=== PATIENT | female | born 1950 | race Caucasian/White ===

== ENCOUNTER 2018-01-23 10:42 | Inpatient (IN) | payer MEDICARE ==
--- NOTE | 2018-01-23 11:01 | ED Physician Chart ---
ED Chief Complaint/HPI - Patient Information Date Seen:: 01/23/18 Time Seen:: 10:40 Chief Complaint:: Agitation History of Present Illness:: onset x 2 days of agitation and aggressive behavior; no report of SIs, trauma, H /As, neck pain, C/P, SOB, Abd. Pain, A/N/V/D/C, fever, chills, or urinary s/s Allergies:: Allergies Allergy/AdvReac Type Severity Reaction Status Date / Time No Known Allergies Allergy Verified 01/23/18 10:56 Historian:: Patient, EMS Review:: Nurse's Note Reviewed, Old Chart Reviewed, EMS run form Reviewed ED Review of Systems - Review of Systems General/Constitutional: No fever, No chills, No weight loss, No weakness, No diaphoresis, No edema, No loss of appetite Skin: No skin lesions, No rash, No bruising Head: No headache, No light-headedness Eyes: No loss of vision, No pain, No diplopia ENT: No earache, No nasal drainage, No sore throat, No tinnitus Neck: No neck pain, No swelling, No thyromegaly, No stiffness, No mass noted Cardio Vascular: No chest pain, No palpitations, No PND, No orthopnea, No edema Pulmonary: No SOB, No cough, No sputum, No wheezing GI: No nausea, No vomiting, No diarrhea, No pain, No melena, No hematochezia, No constipation, No hematemesis G/U: No dysuria, No frequency, No hematuria, No nacturia Sales Service Coordinator: No vaginal discharge, No abnormal vaginal bleed, No contraction Musculoskeletal: No bone or joint pain, No back pain, No muscle pain Endocrine: No polyuria, No polydipsia Psychiatric: Prior psych history, Depression, Anxiety, No suicidal ideation, No homicidal ideation, No auditory hallucination, No visual hallucination Hematopoietic: No bruising, No lymphadenopathy Allergic/Immuno: No urticaria, No angioedema Neurological: No syncope, No focal symptoms, No weakness, No paresthesia, No headache, No seizure, No dizziness, No confusion, No vertigo ED Past Medical History - Past Medical History Obtainable: Yes Past Medical History: HTN Family History: HTN Social History: Non Smoker, No Alcohol, No Drug Use, Single, Care Facility Surgical History: None Psychiatricy History: Depression, Bipolar Medication: Reviewed Family Medical History - Family Member Mother History Unknown: Yes ED Physical Exam - Physical Examination General/Constitutional: Awake, Well-developed, well-nourished, Alert, No distress, GCS 15, Non-toxic appearing, Ambulatory Head: Atraumatic Eyes: Lids, conjuctiva normal, PERRL, EOMI Skin: Nl inspection, No rash, No skin lesions, No ecchymosis, Well hydrated, No lymphadenopathy ENMT: External ears, nose nl, TM canals nl, Nasal exam nl, Lips, teeth, gums nl , Oropharynx nl, Tonsils nl Neck: Nontender, Full ROM w/o pain, No JVD, No nuchal rigidity, No bruit, No mass, No stridor Respiratory: Nl effort/Exclusion, Clear to Auscultation, No Wheeze/Rhonchi/Rales Cardio Vascular: RRR, No murmur, gallop, rubs, NL S1 S2, Carotid/Femoral/Distal pulses equal bilaterally GI: No tenderness/rebounding/guarding, No organomegaly, No hernia, Normal BS's, Nondistended, No mass/bruits, No McBurney tenderness : No CVA tenderness Extremities: No tenderness or effusion, Full ROM, normal strength in all extremities, No edema, Normal digits & nails Neuro/Psych: Alert/oriented, DTR's symmetric, Normal sensory exam, Normal motor strength, Judgement/insight normal, Mood normal, Normal gait, No focal deficits Other Neuro/Psych comments:: + Psychomotor Agitation; no SIs; Mood/Affect: Labile Misc: Normal back, No paraspinal tenderness ED Labs/Radiology/EKG Results - Lab Results Comments:: unremarkable - EKG Interpretations EKG Time:: 11:15 Rate & Rhythm: 57; SB Comments:: non-specific st-t changes ED Septic Shock - . Is Septic Shock (SBP<90, OR Lactate>4 mmol\L) present?: No ED Reassessment (Disposition) - Reassessment Reassessment Condition:: Improved - Diagnosis Diagnosis:: Agitation; Bipolar Disorder; Psychosis; Medical Clearance - Aftercare/Follow up Instructions Aftercare/Follow-Up Instructions:: Counseled pt regarding lab results/diagnosis & need follow up, Refer to Discharge Instructions, Counseled pt & family regarding lab results/diagnosis & need follow up - Patient Disposition Discharge/Transfer:: Acute Care w/in this hosp Admitted to:: [facility] Condition at Disposition:: Stable, Improved
[2018-01-23 11:26] LABS: % BASOPHILS 0.2 % (0.0-2.0); % EOSINOPHILS 1.5 % (0.0-5.0); % LYMPHOCYTES 30.7 % (20.0-50.0); % MONOCYTES 5.3 % (2.0-10.0); % NEUTROPHILS 62.3 % (40.0-80.0); EOSINOPHILE ABSOLUTE 0.1 Th/cmm (0.1-0.4); HEMATOCRIT 45.6 % (41.0-60); HEMOGLOBIN 15.3 gm/dL (12-16); LYMPHOCYTE ABSOLUTE 3.1 Th/cmm (1.5-3.0); MEAN CELL VOLUME 90.7 fl (81-100); MEAN CORPUSCULAR HEMOGLOBIN 30.3 pg (27.0-31.0); MEAN CORPUSCULAR HGB CONC 33.5 pg (28.0-36.0); MEAN PLATELET VOLUME 7.4 fl; MONOCYTE ABSOLUTE 0.5 Th/cmm (0.3-1.0); NEUTROPHILE ABSOLUTE 6.3 Th/cmm (1.8-8.0); PLATELET COUNT 357 Th/cmm (150-400); RED BLOOD COUNT 5.03 Mil/cmm (3.80-5.20); RED CELL DISTRIBUTION WIDTH 13.3 % (11.5-20.0)
[2018-01-23 11:42] LABS: ACETAMINOPHEN < 10.0 ug/mL (10.0-30.0); ALB/GLOB RATIO 1.7 (1.0-1.8); ALBUMIN 4.2 gm/dL (3.7-5.3); ALKALINE PHOSPHATASE 108 U/L (34-104); ANION GAP 11.1 (7.0-16.0); BILIRUBIN,TOTAL 0.5 mg/dL (0.3-1.0); BUN - UREA NITROGEN 12 mg/dL (7-25); CALCIUM SERUM 9.2 mg/dL (8.6-10.3); CHLORIDE 107 mEq/L (98-107); CHOLESTEROL 142 mg/dL (<200); CREATININE - SERUM 0.7 mg/dL (0.6-1.2); GFR AFRICAN-AMERICAN > 60.0 ml/min (>90); GFR NON AFRICAN-AMERICAN > 60.0 ml/min; GLUCOSE 91 mg/dL (70-105); HDL -HIGH DENSITY LIPOPROTEIN 49 mg/dL (23-92); POTASSIUM SERUM 4.1 mEq/L (3.5-5.1); SGOT 14 U/L (13-39); SGPT/ALT 12 U/L (7-52); SODIUM SERUM 138 mEq/L (136-145); TOTAL PROTEIN,SERUM 6.7 gm/dL (6.0-8.3); TRIGLYCERIDES 136 mg/dL (<150)
[2018-01-23 12:04] LABS: SALICYLATES (ASPIRIN) < 25.0 mg/L (30.0-100.0)
[2018-01-23 12:05] LABS: URINE MICROSCOPIC INDICATED? YES; URINE SOURCE CLEAN C
[2018-01-23 12:07] LABS: URINE BILIRUBIN NEGATIVE (NEGATIVE); URINE BLOOD SMALL (NEGATIVE); URINE GLUCOSE (UA) NEGATIVE (NEGATIVE); URINE KETONE NEGATIVE (NEGATIVE); URINE LEUKOCYTE ESTERASE NEGATIVE (NEGATIVE); URINE NITRATE NEGATIVE (NEGATIVE); URINE PH 6.5 (4.6 - 8.0); URINE PROTEIN NEGATIVE (NEGATIVE); URINE UROBILINOGEN 0.2 E.U./dL (0.2 - 1.0)
[2018-01-23 12:43] LABS: URINE CLARITY CLEAR (CLEAR); URINE COLOR YELLOW
[2018-01-23 12:49] LABS: URINE BACTERIA NONE SEEN /hpf (NONE SEEN); URINE EPITHELIAL CELLS OCCASIONAL /lpf (FEW); URINE RBC 0-2 /hpf (0-5); URINE WBC 0-2 /hpf (0-5)
[2018-01-23 13:04] LABS: AMPHETAMINE URINE NEGATIVE (NEGATIVE); BARBITURATES URINE NEGATIVE (NEGATIVE); BENZODIAZEPINES QUAL URINE NEGATIVE (NEGATIVE); CANNABINOID THC NEGATIVE (NEGATIVE); COCAINE METABOLITE QUAL URINE NEGATIVE (NEGATIVE); METHADONE URINE NEGATIVE (NEGATIVE); METHAMPHETAMINES QUAL URINE NEGATIVE (NEGATIVE); OPIATES (MORPHINE) QUAL. URINE POSITIVE (NEGATIVE); PHENCYCLIDINE (PCP) URINE NEGATIVE (NEGATIVE); TRICYCLICS (TCA) QUAL. URINE NEGATIVE (NEGATIVE)
[2018-01-23 14:22] VITALS: BP 166/78
[2018-01-23] MEDS: Hydrocodone/APAP 10 mg/325 mg Tab PO PRN (16:31)
[2018-01-23 19:37] LABS: A1C % 5.8 % (4.0-6.0)
--- NOTE | 2018-01-23 19:50 | Psychosocial Evaluation ---
DATE OF SERVICE: 01/23/2018 IDENTIFYING DATA: The patient is a 67-year-old woman, resident of the [facility]. Information obtained by directly interviewing the patient as well as reviewing the admission papers and they are reliable. JUSTIFICATION FOR HOSPITALIZATION: The patient is admitted here on a voluntary basis in view of her acute agitation and aggressive behavior. CHIEF COMPLAINT: "I should not be in here and I do not need to talk to anyone get me out of here." HISTORY OF PRESENT ILLNESS: This is the first psychiatric hospitalization to this patient who has been very aggressive over the past few days and has been having difficult time to calm down. The patient could not be contained at a lower level of care and the patient has to be transferred over here for further stabilization. Chart is reviewed. Staff was spoken to. The patient at this time is very adamant and is not providing much information stating that she should be discharged. The patient is alert and oriented at this time. MENTAL STATUS EXAMINATION: Insight and judgment are very much impaired. Impulse control seems to be poor. Coping skills are also noted to be very poor. The patient is not providing much of information. The patient's short term memory is noted to be poor. Long-term memory seems to be fair at this time. The patient has been having acute mood swings. The patient is alert and aware that she is in the hospital. Attention span and concentration are noted to be poor. DIAGNOSTIC IMPRESSION: AXIS I: 1. Rule out bipolar disorder. 2. Psychotic disorder, not otherwise specified. AXIS II: None. AXIS III: As per Dr. Ventura. IMMEDIATE TREATMENT PLAN: The patient is going to be observed on inpatient unit, provided with supportive psychotherapy. The patient is going to be started on a very low dose of the Seroquel tonight and patient is going to be monitored. Once stabilized, the patient is going to be discharged. ESTIMATED LENGTH OF STAY: Three to five days. DISCHARGE CRITERIA: When she no longer a threat to self or others and be able to cope up with the stress. JOB# [id number]
[2018-01-24] MEDS: Magnesium Hydroxide (MOM) 30 mL UDC PO SCH (09:03)
[2018-01-24] MEDS: Multivitamin w/ Minerals Tab PO SCH (09:04)
[2018-01-24] MEDS: Hydrocodone/APAP 10 mg/325 mg Tab PO PRN ×2 (09:22→18:43)
--- NOTE | 2018-01-24 14:48 | Internal Medicine Prog Note ---
Internal Medicine Subjective - Subjective Service Date: 01/24/18 ([facility] [id number]) Internal Medicine Objective - Results Result Diagrams: 01/23/18 11:15 01/23/18 11:15 Recent Labs: Laboratory Last Values WBC 10.0 Th/cmm (4.8-10.8) 01/23/18 11:15 RBC 5.03 Mil/cmm (3.80-5.20) 01/23/18 11:15 Hgb 15.3 gm/dL (12-16) 01/23/18 11:15 Hct 45.6 % (41.0-60) 01/23/18 11:15 MCV 90.7 fl (81-100) 01/23/18 11:15 MCH 30.3 pg (27.0-31.0) 01/23/18 11:15 MCHC Differential 33.5 pg (28.0-36.0) 01/23/18 11:15 RDW 13.3 % (11.5-20.0) 01/23/18 11:15 Plt Count 357 Th/cmm (150-400) 01/23/18 11:15 MPV 7.4 fl 01/23/18 11:15 Neutrophils % 62.3 % (40.0-80.0) 01/23/18 11:15 Lymphocytes % 30.7 % (20.0-50.0) 01/23/18 11:15 Monocytes % 5.3 % (2.0-10.0) 01/23/18 11:15 Eosinophils % 1.5 % (0.0-5.0) 01/23/18 11:15 Basophils % 0.2 % (0.0-2.0) 01/23/18 11:15 Sodium 138 mEq/L (136-145) 01/23/18 11:15 Potassium 4.1 mEq/L (3.5-5.1) 01/23/18 11:15 Chloride 107 mEq/L (98-107) 01/23/18 11:15 Carbon Dioxide 24.0 mEq/L (21.0-31.0) 01/23/18 11:15 Anion Gap 11.1 (7.0-16.0) 01/23/18 11:15 BUN 12 mg/dL (7-25) 01/23/18 11:15 Creatinine 0.7 mg/dL (0.6-1.2) 01/23/18 11:15 Est GFR ( Amer) > 60.0 ml/min (>90) 01/23/18 11:15 Est GFR (Non-Af Amer) > 60.0 ml/min 01/23/18 11:15 BUN/Creatinine Ratio 17.1 01/23/18 11:15 Glucose 91 mg/dL (70-105) 01/23/18 11:15 Hemoglobin A1c % 5.8 % (4.0-6.0) 01/23/18 11:15 Calcium 9.2 mg/dL (8.6-10.3) 01/23/18 11:15 Total Bilirubin 0.5 mg/dL (0.3-1.0) 01/23/18 11:15 AST 14 U/L (13-39) 01/23/18 11:15 ALT 12 U/L (7-52) 01/23/18 11:15 Alkaline Phosphatase 108 U/L (34-104) H 01/23/18 11:15 Total Protein 6.7 gm/dL (6.0-8.3) 01/23/18 11:15 Albumin 4.2 gm/dL (3.7-5.3) 01/23/18 11:15 Globulin 2.5 gm/dL 01/23/18 11:15 Albumin/Globulin Ratio 1.7 (1.0-1.8) 01/23/18 11:15 Triglycerides 136 mg/dL (<150) 01/23/18 11:15 Cholesterol 142 mg/dL (<200) 01/23/18 11:15 LDL Cholesterol Direct 82 mg/dL (75-193) 01/23/18 11:15 HDL Cholesterol 49 mg/dL (23-92) 01/23/18 11:15 TSH 1.10 uIU/ml (0.34-5.60) 01/23/18 11:15 Urine Source CLEAN C 01/23/18 11:40 Urine Color YELLOW 01/23/18 11:40 Urine Clarity CLEAR (CLEAR) 01/23/18 11:40 Urine pH 6.5 (4.6 - 8.0) 01/23/18 11:40 Ur Specific [place] <= 1.005 (1.005-1.030) 01/23/18 11:40 Urine Protein NEGATIVE mg/dL (NEGATIVE) 01/23/18 11:40 Urine Glucose (UA) NEGATIVE mg/dL (NEGATIVE) 01/23/18 11:40 Urine Ketones NEGATIVE mg/dL (NEGATIVE) 01/23/18 11:40 Urine Blood SMALL (NEGATIVE) H 01/23/18 11:40 Urine Nitrate NEGATIVE (NEGATIVE) 01/23/18 11:40 Urine Bilirubin NEGATIVE (NEGATIVE) 01/23/18 11:40 Urine Urobilinogen 0.2 E.U./dL (0.2 - 1.0) 01/23/18 11:40 Ur Leukocyte Esterase NEGATIVE (NEGATIVE) 01/23/18 11:40 Urine RBC 0-2 /hpf (0-5) 01/23/18 11:40 Urine WBC 0-2 /hpf (0-5) 01/23/18 11:40 Ur Epithelial Cells OCCASIONAL /lpf (FEW) 01/23/18 11:40 Urine Bacteria NONE SEEN /hpf (NONE SEEN) 01/23/18 11:40 Salicylates < 25.0 mg/L (30.0-100.0) L 01/23/18 11:15 Urine Opiates Screen POSITIVE (NEGATIVE) H 01/23/18 11:40 Urine Methadone Screen NEGATIVE (NEGATIVE) 01/23/18 11:40 Acetaminophen < 10.0 ug/mL (10.0-30.0) L 01/23/18 11:15 Ur Barbiturates Screen NEGATIVE (NEGATIVE) 01/23/18 11:40 Ur Tricyclics Screen NEGATIVE (NEGATIVE) 01/23/18 11:40 Ur Phencyclidine Scrn NEGATIVE (NEGATIVE) 01/23/18 11:40 Amphetamines Screen NEGATIVE (NEGATIVE) 01/23/18 11:40 U Methamphetamines Scrn NEGATIVE (NEGATIVE) 01/23/18 11:40 U Benzodiazepines Scrn NEGATIVE (NEGATIVE) 01/23/18 11:40 U Cocaine Metab Screen NEGATIVE (NEGATIVE) 01/23/18 11:40 U Cannabinoids Screen NEGATIVE (NEGATIVE) 01/23/18 11:40 Ethyl Alcohol < 10 mg/dL (0-10) 01/23/18 11:15 - Physical Exam Vitals and I&O: Vital Signs Temp 97.9 F 01/23/18 14:20 Pulse 69 01/24/18 09:04 Resp 18 01/23/18 14:20 BP 167/74 01/24/18 09:04 Pulse Ox 94 01/23/18 14:20 Active Medications: Current Medications Acetaminophen (Tylenol) 650 mg PO Q6H PRN PRN Reason: Pain (Mild) Stop: 03/24/18 14:34 Acetaminophen/Hydrocodone Bitart ([place] 10 Mg/325 Mg) 1 tab PO Q6H PRN PRN Reason: Pain (Severe) Stop: 03/24/18 14:34 Last Admin: 01/24/18 09:22 Dose: 1 tab Aspirin (Ecotrin) 81 mg PO DAILY [facility] Stop: 03/25/18 08:59 Last Admin: 01/24/18 09:04 Dose: 81 mg Baclofen (Lioresal) 10 mg PO TID [facility] Stop: 03/24/18 20:59 Last Admin: 01/24/18 09:03 Dose: 10 mg Cholecalciferol (Vitamin D3) 1,000 iu PO DAILY [facility] Stop: 03/25/18 08:59 Last Admin: 01/24/18 09:04 Dose: 1,000 iu Docusate Sodium (Colace) 200 mg PO BID [facility] Stop: 03/24/18 16:59 Last Admin: 01/24/18 09:04 Dose: Not Given Famotidine (Pepcid) 20 mg PO DAILY [facility] Stop: 03/25/18 08:59 Last Admin: 01/24/18 09:05 Dose: 20 mg Haloperidol (Haldol) 1 mg PO BID PRN; Protocol PRN Reason: Agitation Stop: 03/25/18 08:59 Magnesium Hydroxide (Milk Of Magnesia) 30 ml PO DAILY [facility] Stop: 03/25/18 08:59 Last Admin: 01/24/18 09:03 Dose: 30 ml Metoprolol Tartrate (Lopressor) 50 mg PO BID [facility] Stop: 03/24/18 15:59 Last Admin: 01/24/18 09:04 Dose: 50 mg Oxybutynin Chloride (Ditropan) 5 mg PO BID [facility] Stop: 03/24/18 16:59 Last Admin: 01/24/18 09:04 Dose: 5 mg Simvastatin (Zocor) 40 mg PO HS [facility] PRN Reason: Protocol Stop: 03/24/18 20:59 Last Admin: 01/23/18 21:06 Dose: 40 mg Trazodone HCl (Desyrel) 50 mg PO HS [facility] PRN Reason: Protocol Stop: 03/24/18 20:59 Last Admin: 01/23/18 21:07 Dose: 50 mg
--- NOTE | 2018-01-24 16:26 | History & Physical ---
ADMIT DATE: 01/24/2018 CHIEF COMPLAINT: Agitation. HISTORY OF PRESENT ILLNESS: This is a 67-year-old female who is a residential resident, who was admitted to the Geropsych Unit due to a 2-day history of agitation and aggressive behavior. PAST MEDICAL HISTORY: Hypertension, muscle spasms, constipation, GERD, hypertension, hypercholesterolemia. PLAN: The patient to be admitted. We will monitor the patient's blood pressure closely. We will adjust patient's blood pressure medications accordingly. We will continue to follow this patient. JOB# [id number]
--- NOTE | 2018-01-25 03:17 | Progress Notes ---
DATE: 01/24/2018 SUBJECTIVE: Staff was spoken to. The patient is interviewed. Mood is noted to be irritable. Affect is constricted. Insight and judgment at this time are noted to be still impaired. Impulse control is limited. The patient is insisting that she has been too much of pain and needs a hydrocodone tablet. The patient has been given a [place] earlier, the patient is still focused on the pain medication and she is also stating that there is no reason for her to be in here and continues to be discharged. The patient's coping skills are noted to be very poor. The patient's sleep is also noted to be very poor. ASSESSMENT: The patient is still impulsive. PLAN: To continue the patient with the supportive therapy, encouraged the patient to verbalize the concerns in view of her depression and insistence on the pain medications. Depression is suspected and the patient is going to be started with the low dose of the Lexapro in the morning and the patient is going to be followed up with the supportive therapy. JOB# [id number]
[2018-01-25] MEDS: Escitalopram Oxalate 5 mg Tab PO SCH (09:13)
[2018-01-25] MEDS: Multivitamin w/ Minerals Tab PO SCH (09:34)
[2018-01-25] MEDS: Magnesium Hydroxide (MOM) 30 mL UDC PO SCH (09:35)
--- NOTE | 2018-01-25 12:47 | History and Physical ---
History of Present Illness - HPI Chief Complaint: agitation HPI: This is a 67 year old female who is a [facility] resident admitted to geropsych unit due to a 2 day history of agitation and aggressive behavior. Vital Signs: Last Vital Signs Temp 97.8 F 01/24/18 16:25 Pulse 81 01/25/18 09:34 Resp 18 01/24/18 16:25 BP 145/82 01/25/18 09:34 Pulse Ox 96 01/24/18 16:25 Past Medical History Other History: htn muscle spasms constipation gerd htn hypercholesteremia Family Medical History - Family Member Mother History Unknown: Yes Social History Smoke: No Alcohol: None Drugs: None Lives: Skilled Nursing - Medications Home Medications: Home Medication Medication Instructions Recorded Type Acetaminophen 650 mg PO Q6H PRN 01/23/18 History Aspirin [Adult Low Dose Aspirin EC] 81 mg PO DAILY 01/23/18 History Baclofen [Lioresal*] 10 mg PO TID 01/23/18 History Cholecalciferol (Vit D3) [Vitamin 1 tab PO DAILY 01/23/18 History D3] Diphenhydramine HCl [Benadryl] 25 mg PO Q6H PRN 01/23/18 History Docusate Sodium 200 mg PO BID 01/23/18 History Famotidine [Pepcid] 1 tab PO DAILY 01/23/18 History Hydrocodone/APAP 10 mg/325 mg 1 tab PO Q6H PRN 01/23/18 History [[place] 10 mg/325 mg] Magnesium Hydroxide [Milk of 30 ml PO DAILY 01/23/18 History Magnesia] Metoprolol Tartrate [Lopressor] 1 tab PO BID 01/23/18 History Multivitamin w/ Minerals 1 tab PO DAILY 01/23/18 History [Theragran M] Oxybutynin Chloride [Ditropan*] 5 mg PO BID 01/23/18 History Simvastatin [Zocor] 40 mg PO HS 01/23/18 History Trazodone HCl 1 tab PO HS 01/23/18 History - Allergies Allergies/Adverse Reactions: Allergies Allergy/AdvReac Type Severity Reaction Status Date / Time No Known Allergies Allergy Verified 01/23/18 10:56 Review of Systems - Review of Systems Constitutional: Report: No Significant Eyes: Report: No Significant ENT: Report: No Significant Respiratory: Report: No Significant Cardiovascular: Report: No Significant Gastrointestinal: Report: No Significant Neurological: Report: No Significant Physical Exam - Physical Exam HEENT: Report: Ears Nose Throat within normal limits Neck: Report: Within normal limits Cardiovascular Systems: Report: +s1/s2 noted, Regular, Rate and Rhythm Respiratory: Report: Breath Sounds are within normal limits Abdomen: Report: Non-tender to palpation Back: Report: Inspection of back is within normal limits. Extremities: Report: Non-tender to palpation. Skin: Report: Color of skin is within normal limits Neuro/Psych: Report: Mood affect is within normal limits - Assessment Assessment: agitation psychosis htn muscle spasms constipation gerd htn hypercholesteremia - Plan Plan: prn laxatives fall precautions continue current orders
[2018-01-25] MEDS: Hydrocodone/APAP 10 mg/325 mg Tab PO PRN (17:26)
--- NOTE | 2018-01-26 03:44 | Progress Notes ---
DATE: 01/25/2018 PSYCHIATRIC PROGRESS NOTE SUBJECTIVE: Staff was spoken to. The patient is interviewed. Mood is noted to be irritable. Affect is constricted. Coping skills are noted to be very poor. The patient is getting easily frustrated. The patient is stating that she is frustrated and depressed after being in here and she wants to be back at the facility. No side effects to the medications are noted at this time. The patient is still focused on her pain medication. ASSESSMENT: The patient is still impulsive and still depressed. PLAN: To continue the patient with the supportive therapy and follow. JOB# [id number]
[2018-01-26] MEDS: Magnesium Hydroxide (MOM) 30 mL UDC PO SCH (08:57)
[2018-01-26] MEDS: Escitalopram Oxalate 5 mg Tab PO SCH (08:57)
[2018-01-26] MEDS: Multivitamin w/ Minerals Tab PO SCH (08:58)
[2018-01-26] MEDS: Hydrocodone/APAP 10 mg/325 mg Tab PO PRN ×2 (11:34→21:13)
--- NOTE | 2018-01-26 13:43 | Internal Medicine Prog Note ---
Internal Medicine Subjective - Subjective Service Date: 01/26/18 Patient seen and examined:: with staff Patient is:: awake, verbal Per staff patient has:: tolerating meds Internal Medicine Objective - Results Result Diagrams: 01/23/18 11:15 01/23/18 11:15 Recent Labs: Laboratory Last Values WBC 10.0 Th/cmm (4.8-10.8) 01/23/18 11:15 RBC 5.03 Mil/cmm (3.80-5.20) 01/23/18 11:15 Hgb 15.3 gm/dL (12-16) 01/23/18 11:15 Hct 45.6 % (41.0-60) 01/23/18 11:15 MCV 90.7 fl (81-100) 01/23/18 11:15 MCH 30.3 pg (27.0-31.0) 01/23/18 11:15 MCHC Differential 33.5 pg (28.0-36.0) 01/23/18 11:15 RDW 13.3 % (11.5-20.0) 01/23/18 11:15 Plt Count 357 Th/cmm (150-400) 01/23/18 11:15 MPV 7.4 fl 01/23/18 11:15 Neutrophils % 62.3 % (40.0-80.0) 01/23/18 11:15 Lymphocytes % 30.7 % (20.0-50.0) 01/23/18 11:15 Monocytes % 5.3 % (2.0-10.0) 01/23/18 11:15 Eosinophils % 1.5 % (0.0-5.0) 01/23/18 11:15 Basophils % 0.2 % (0.0-2.0) 01/23/18 11:15 Sodium 138 mEq/L (136-145) 01/23/18 11:15 Potassium 4.1 mEq/L (3.5-5.1) 01/23/18 11:15 Chloride 107 mEq/L (98-107) 01/23/18 11:15 Carbon Dioxide 24.0 mEq/L (21.0-31.0) 01/23/18 11:15 Anion Gap 11.1 (7.0-16.0) 01/23/18 11:15 BUN 12 mg/dL (7-25) 01/23/18 11:15 Creatinine 0.7 mg/dL (0.6-1.2) 01/23/18 11:15 Est GFR ( Amer) > 60.0 ml/min (>90) 01/23/18 11:15 Est GFR (Non-Af Amer) > 60.0 ml/min 01/23/18 11:15 BUN/Creatinine Ratio 17.1 01/23/18 11:15 Glucose 91 mg/dL (70-105) 01/23/18 11:15 Hemoglobin A1c % 5.8 % (4.0-6.0) 01/23/18 11:15 Calcium 9.2 mg/dL (8.6-10.3) 01/23/18 11:15 Total Bilirubin 0.5 mg/dL (0.3-1.0) 01/23/18 11:15 AST 14 U/L (13-39) 01/23/18 11:15 ALT 12 U/L (7-52) 01/23/18 11:15 Alkaline Phosphatase 108 U/L (34-104) H 01/23/18 11:15 Total Protein 6.7 gm/dL (6.0-8.3) 01/23/18 11:15 Albumin 4.2 gm/dL (3.7-5.3) 01/23/18 11:15 Globulin 2.5 gm/dL 01/23/18 11:15 Albumin/Globulin Ratio 1.7 (1.0-1.8) 01/23/18 11:15 Triglycerides 136 mg/dL (<150) 01/23/18 11:15 Cholesterol 142 mg/dL (<200) 01/23/18 11:15 LDL Cholesterol Direct 82 mg/dL (75-193) 01/23/18 11:15 HDL Cholesterol 49 mg/dL (23-92) 01/23/18 11:15 TSH 1.10 uIU/ml (0.34-5.60) 01/23/18 11:15 Urine Source CLEAN C 01/23/18 11:40 Urine Color YELLOW 01/23/18 11:40 Urine Clarity CLEAR (CLEAR) 01/23/18 11:40 Urine pH 6.5 (4.6 - 8.0) 01/23/18 11:40 Ur Specific [place] <= 1.005 (1.005-1.030) 01/23/18 11:40 Urine Protein NEGATIVE mg/dL (NEGATIVE) 01/23/18 11:40 Urine Glucose (UA) NEGATIVE mg/dL (NEGATIVE) 01/23/18 11:40 Urine Ketones NEGATIVE mg/dL (NEGATIVE) 01/23/18 11:40 Urine Blood SMALL (NEGATIVE) H 01/23/18 11:40 Urine Nitrate NEGATIVE (NEGATIVE) 01/23/18 11:40 Urine Bilirubin NEGATIVE (NEGATIVE) 01/23/18 11:40 Urine Urobilinogen 0.2 E.U./dL (0.2 - 1.0) 01/23/18 11:40 Ur Leukocyte Esterase NEGATIVE (NEGATIVE) 01/23/18 11:40 Urine RBC 0-2 /hpf (0-5) 01/23/18 11:40 Urine WBC 0-2 /hpf (0-5) 01/23/18 11:40 Ur Epithelial Cells OCCASIONAL /lpf (FEW) 01/23/18 11:40 Urine Bacteria NONE SEEN /hpf (NONE SEEN) 01/23/18 11:40 Salicylates < 25.0 mg/L (30.0-100.0) L 01/23/18 11:15 Urine Opiates Screen POSITIVE (NEGATIVE) H 01/23/18 11:40 Urine Methadone Screen NEGATIVE (NEGATIVE) 01/23/18 11:40 Acetaminophen < 10.0 ug/mL (10.0-30.0) L 01/23/18 11:15 Ur Barbiturates Screen NEGATIVE (NEGATIVE) 01/23/18 11:40 Ur Tricyclics Screen NEGATIVE (NEGATIVE) 01/23/18 11:40 Ur Phencyclidine Scrn NEGATIVE (NEGATIVE) 01/23/18 11:40 Amphetamines Screen NEGATIVE (NEGATIVE) 01/23/18 11:40 U Methamphetamines Scrn NEGATIVE (NEGATIVE) 01/23/18 11:40 U Benzodiazepines Scrn NEGATIVE (NEGATIVE) 01/23/18 11:40 U Cocaine Metab Screen NEGATIVE (NEGATIVE) 01/23/18 11:40 U Cannabinoids Screen NEGATIVE (NEGATIVE) 01/23/18 11:40 Ethyl Alcohol < 10 mg/dL (0-10) 01/23/18 11:15 RPR NONREACTIVE (NONREACTIVE) 01/23/18 11:15 - Physical Exam Vitals and I&O: Vital Signs Temp 97.9 F 01/26/18 05:45 Pulse 69 01/26/18 08:58 Resp 18 01/26/18 10:51 BP 142/75 01/26/18 08:58 Pulse Ox 93 01/26/18 05:45 Intake & Output 01/25/18 01/26/18 01/26/18 18:59 06:59 18:59 Intake Total 560 Balance 560 Intake: Oral 560 Other: # Voids 2 Active Medications: Current Medications Acetaminophen (Tylenol) 650 mg PO Q6H PRN PRN Reason: Pain (Mild) Stop: 03/24/18 14:34 Acetaminophen/Hydrocodone Bitart ([place] 10 Mg/325 Mg) 1 tab PO Q6H PRN PRN Reason: Pain (Severe) Stop: 03/24/18 14:34 Last Admin: 01/26/18 11:34 Dose: 1 tab Aspirin (Ecotrin) 81 mg PO DAILY [facility] Stop: 03/25/18 08:59 Last Admin: 01/26/18 08:58 Dose: 81 mg Baclofen (Lioresal) 10 mg PO TID [facility] Stop: 03/24/18 20:59 Last Admin: 01/26/18 08:57 Dose: 10 mg Cholecalciferol (Vitamin D3) 1,000 iu PO DAILY [facility] Stop: 03/25/18 08:59 Last Admin: 01/26/18 08:57 Dose: 1,000 iu Docusate Sodium (Colace) 200 mg PO BID [facility] Stop: 03/24/18 16:59 Last Admin: 01/26/18 08:57 Dose: Not Given Escitalopram Oxalate (Lexapro) 5 mg PO DAILY [facility] PRN Reason: Protocol Stop: 03/26/18 08:59 Last Admin: 01/26/18 08:57 Dose: 5 mg Famotidine (Pepcid) 20 mg PO DAILY [facility] Stop: 03/25/18 08:59 Last Admin: 01/26/18 08:58 Dose: 20 mg Haloperidol (Haldol) 1 mg PO BID PRN; Protocol PRN Reason: Agitation Stop: 03/25/18 08:59 Magnesium Hydroxide (Milk Of Magnesia) 30 ml PO DAILY [facility] Stop: 03/25/18 08:59 Last Admin: 01/26/18 08:57 Dose: Not Given Metoprolol Tartrate (Lopressor) 50 mg PO BID [facility] Stop: 03/24/18 15:59 Last Admin: 01/26/18 08:58 Dose: 50 mg Oxybutynin Chloride (Ditropan) 5 mg PO BID [facility] Stop: 03/24/18 16:59 Last Admin: 01/26/18 08:57 Dose: 5 mg Simvastatin (Zocor) 40 mg PO HS [facility] PRN Reason: Protocol Stop: 03/24/18 20:59 Last Admin: 01/25/18 20:59 Dose: 40 mg Trazodone HCl (Desyrel) 50 mg PO HS [facility] PRN Reason: Protocol Stop: 03/24/18 20:59 Last Admin: 01/25/18 20:59 Dose: 50 mg General: alert HEENT: NC/AT, PERRLA Neck: Supple Lungs: CTAB Cardiovascular: RRR, Normal S1, Normal S2, without murmur Abdomen: soft, non-tender, non-distended, positive bowel sound Neurological: alert Internal Medicine Assmt/Plan - Assessment Assessment: agitation psychosis htn muscle spasms constipation gerd htn hypercholesteremia - Plan Plan: prn laxatives fall precautions continue current orders
--- NOTE | 2018-01-26 16:40 | Progress Notes ---
DATE: 01/26/2018 SUBJECTIVE: Staff was spoken to. The patient is interviewed. Mood is noted to be irritable. Affect is constricted. The patient is stating that there is nothing wrong with her. She needs her pain medications. The patient has been still feeling frustrated and hence it is decided to place the patient on the Lexapro, which is going to be gradually increased to 10 mg and patient is going to be followed up with the supportive therapy. The patient is getting easily frustrated. ASSESSMENT: The patient is still depressed. PLAN: To continue the patient with the current medications. Increase the dose on the Lexapro and follow the patient up. JOB# [id number]
--- NOTE | 2018-01-26 21:16 | Consultation ---
DATE OF CONSULTATION: 01/25/2018 REQUESTING PHYSICIAN: Khoi Kirby MD. TYPE OF CONSULTATION: Psychology. HISTORY OF PRESENT ILLNESS: The patient is a 67-year-old female who is a resident of [facility]. The following is by review of medical record and by patient's self report. The patient is being admitted due to acute agitation and aggressive behavior. The staff at the patient's facility report that she has been having difficulty calming down and that she has been behaviorally un-redirectable. The patient's staff also states that she has been very aggressive verbally over the past few days. The patient is selectively mute during the clinical interview and not providing much information. The patient continued to repeat that she should be discharged. The patient stated that she does not need to talk to anyone and that she should not be here at the hospital. The patient did not answer questions about suicidal ideation, plan or intention. PAST MEDICAL HISTORY: Please see the history and physical by Dr. Ventura. PAST PSYCHIATRIC HISTORY: Records are unavailable. SUBSTANCE ABUSE HISTORY: Records are unavailable. PSYCHOSOCIAL HISTORY: The patient is a resident of [facility]. The patient did not answer questions about occupational history or educational history or faith affiliation. The patient did not answer questions about physical or sexual abuse history or about any legal issues. MENTAL STATUS EXAMINATION: The patient appears to be her stated age. The patient's attitude is mostly uncooperative and selectively mute. Eye contact is poor. Speech is slow. Mood is irritable. Affect is mood congruent and animated. Thought process is confused and the patient is not responding to cognitive redirection. The patient shook her head no that she is not experiencing any auditory or visual hallucinations. The patient seems to be having suspicious thoughts and possible paranoid ideation. The patient's concentration is poor. The patient's behavior is difficult to redirect on the unit. Impulse control is poor. Sensorium is alert and oriented to person, place and self. The patient did not participate in the memory assessment. Immediate memory and short term memory may be impaired. [facility] memory needs further evaluation. The patient did not participate in the interpretation of proverbs. Insight is poor. Judgment is poor. DIAGNOSTIC IMPRESSION: AXIS I: 1. Psychotic disorder, not otherwise specified. 2. Rule out bipolar disorder. AXIS II: Deferred. AXIS III: Please see history and physical by Dr. Ventura. PLAN: The patient has been seen by Dr. Kirby for psychiatric evaluation for the management of the patient's psychotropic medications. The patient will be observed closely and we will provide supportive psychotherapy. This will include a simple de-escalation skill as well as motivational enhancement for the patient to become compliant and stay compliant with all aspects of her care and treatment plan. We will provide reality orientation, reality differentiation and reality integration. We will provide coping strategies for phase of life issues. We will encourage the patient to verbalize her concerns versus acting out. We will provide an opportunity for the patient to contract verbally for safety. The patient is being started on a low dose of Seroquel according to Dr. Kirby. We will also provide stress management skills to increase the patient's frustration tolerance and encourage her to interact appropriately with staff and peers at her facility. Thank you, Dr. Kirby, for this consult and the opportunity to participate with you in this patient's care. JOB# [id number] [email or web address]
[2018-01-27] MEDS: Multivitamin w/ Minerals Tab PO SCH (09:06)
[2018-01-27] MEDS: Hydrocodone/APAP 10 mg/325 mg Tab PO PRN ×2 (09:06→17:13)
[2018-01-27] MEDS: Magnesium Hydroxide (MOM) 30 mL UDC PO SCH (09:06)
--- NOTE | 2018-01-27 12:41 | Internal Medicine Prog Note ---
Internal Medicine Subjective - Subjective Service Date: 01/27/18 Patient is:: awake, verbal Per staff patient has:: tolerating meds Internal Medicine Objective - Results Result Diagrams: 01/23/18 11:15 01/23/18 11:15 Recent Labs: Laboratory Last Values WBC 10.0 Th/cmm (4.8-10.8) 01/23/18 11:15 RBC 5.03 Mil/cmm (3.80-5.20) 01/23/18 11:15 Hgb 15.3 gm/dL (12-16) 01/23/18 11:15 Hct 45.6 % (41.0-60) 01/23/18 11:15 MCV 90.7 fl (81-100) 01/23/18 11:15 MCH 30.3 pg (27.0-31.0) 01/23/18 11:15 MCHC Differential 33.5 pg (28.0-36.0) 01/23/18 11:15 RDW 13.3 % (11.5-20.0) 01/23/18 11:15 Plt Count 357 Th/cmm (150-400) 01/23/18 11:15 MPV 7.4 fl 01/23/18 11:15 Neutrophils % 62.3 % (40.0-80.0) 01/23/18 11:15 Lymphocytes % 30.7 % (20.0-50.0) 01/23/18 11:15 Monocytes % 5.3 % (2.0-10.0) 01/23/18 11:15 Eosinophils % 1.5 % (0.0-5.0) 01/23/18 11:15 Basophils % 0.2 % (0.0-2.0) 01/23/18 11:15 Sodium 138 mEq/L (136-145) 01/23/18 11:15 Potassium 4.1 mEq/L (3.5-5.1) 01/23/18 11:15 Chloride 107 mEq/L (98-107) 01/23/18 11:15 Carbon Dioxide 24.0 mEq/L (21.0-31.0) 01/23/18 11:15 Anion Gap 11.1 (7.0-16.0) 01/23/18 11:15 BUN 12 mg/dL (7-25) 01/23/18 11:15 Creatinine 0.7 mg/dL (0.6-1.2) 01/23/18 11:15 Est GFR ( Amer) > 60.0 ml/min (>90) 01/23/18 11:15 Est GFR (Non-Af Amer) > 60.0 ml/min 01/23/18 11:15 BUN/Creatinine Ratio 17.1 01/23/18 11:15 Glucose 91 mg/dL (70-105) 01/23/18 11:15 Hemoglobin A1c % 5.8 % (4.0-6.0) 01/23/18 11:15 Calcium 9.2 mg/dL (8.6-10.3) 01/23/18 11:15 Total Bilirubin 0.5 mg/dL (0.3-1.0) 01/23/18 11:15 AST 14 U/L (13-39) 01/23/18 11:15 ALT 12 U/L (7-52) 01/23/18 11:15 Alkaline Phosphatase 108 U/L (34-104) H 01/23/18 11:15 Total Protein 6.7 gm/dL (6.0-8.3) 01/23/18 11:15 Albumin 4.2 gm/dL (3.7-5.3) 01/23/18 11:15 Globulin 2.5 gm/dL 01/23/18 11:15 Albumin/Globulin Ratio 1.7 (1.0-1.8) 01/23/18 11:15 Triglycerides 136 mg/dL (<150) 01/23/18 11:15 Cholesterol 142 mg/dL (<200) 01/23/18 11:15 LDL Cholesterol Direct 82 mg/dL (75-193) 01/23/18 11:15 HDL Cholesterol 49 mg/dL (23-92) 01/23/18 11:15 TSH 1.10 uIU/ml (0.34-5.60) 01/23/18 11:15 Urine Source CLEAN C 01/23/18 11:40 Urine Color YELLOW 01/23/18 11:40 Urine Clarity CLEAR (CLEAR) 01/23/18 11:40 Urine pH 6.5 (4.6 - 8.0) 01/23/18 11:40 Ur Specific [place] <= 1.005 (1.005-1.030) 01/23/18 11:40 Urine Protein NEGATIVE mg/dL (NEGATIVE) 01/23/18 11:40 Urine Glucose (UA) NEGATIVE mg/dL (NEGATIVE) 01/23/18 11:40 Urine Ketones NEGATIVE mg/dL (NEGATIVE) 01/23/18 11:40 Urine Blood SMALL (NEGATIVE) H 01/23/18 11:40 Urine Nitrate NEGATIVE (NEGATIVE) 01/23/18 11:40 Urine Bilirubin NEGATIVE (NEGATIVE) 01/23/18 11:40 Urine Urobilinogen 0.2 E.U./dL (0.2 - 1.0) 01/23/18 11:40 Ur Leukocyte Esterase NEGATIVE (NEGATIVE) 01/23/18 11:40 Urine RBC 0-2 /hpf (0-5) 01/23/18 11:40 Urine WBC 0-2 /hpf (0-5) 01/23/18 11:40 Ur Epithelial Cells OCCASIONAL /lpf (FEW) 01/23/18 11:40 Urine Bacteria NONE SEEN /hpf (NONE SEEN) 01/23/18 11:40 Salicylates < 25.0 mg/L (30.0-100.0) L 01/23/18 11:15 Urine Opiates Screen POSITIVE (NEGATIVE) H 01/23/18 11:40 Urine Methadone Screen NEGATIVE (NEGATIVE) 01/23/18 11:40 Acetaminophen < 10.0 ug/mL (10.0-30.0) L 01/23/18 11:15 Ur Barbiturates Screen NEGATIVE (NEGATIVE) 01/23/18 11:40 Ur Tricyclics Screen NEGATIVE (NEGATIVE) 01/23/18 11:40 Ur Phencyclidine Scrn NEGATIVE (NEGATIVE) 01/23/18 11:40 Amphetamines Screen NEGATIVE (NEGATIVE) 01/23/18 11:40 U Methamphetamines Scrn NEGATIVE (NEGATIVE) 01/23/18 11:40 U Benzodiazepines Scrn NEGATIVE (NEGATIVE) 01/23/18 11:40 U Cocaine Metab Screen NEGATIVE (NEGATIVE) 01/23/18 11:40 U Cannabinoids Screen NEGATIVE (NEGATIVE) 01/23/18 11:40 Ethyl Alcohol < 10 mg/dL (0-10) 01/23/18 11:15 RPR NONREACTIVE (NONREACTIVE) 01/23/18 11:15 - Physical Exam Vitals and I&O: Vital Signs Temp 98.3 F 01/26/18 20:00 Pulse 71 01/27/18 09:07 Resp 19 01/27/18 09:38 BP 133/76 01/27/18 09:07 Pulse Ox 95 01/26/18 20:00 Intake & Output 01/26/18 01/27/18 01/27/18 18:59 06:59 18:59 Intake Total 480 240 Balance 480 240 Weight (lbs) 159 lb Intake: Oral 480 240 Other: # Voids 3 2 # Bowel Movements 0 Weight Source Bedscale Active Medications: Current Medications Acetaminophen (Tylenol) 650 mg PO Q6H PRN PRN Reason: Pain (Mild) Stop: 03/24/18 14:34 Acetaminophen/Hydrocodone Bitart ([place] 10 Mg/325 Mg) 1 tab PO Q6H PRN PRN Reason: Pain (Severe) Stop: 03/24/18 14:34 Last Admin: 01/27/18 09:06 Dose: 1 tab Aspirin (Ecotrin) 81 mg PO DAILY [facility] Stop: 03/25/18 08:59 Last Admin: 01/27/18 09:05 Dose: 81 mg Baclofen (Lioresal) 10 mg PO TID [facility] Stop: 03/24/18 20:59 Last Admin: 01/27/18 09:06 Dose: 10 mg Cholecalciferol (Vitamin D3) 1,000 iu PO DAILY [facility] Stop: 03/25/18 08:59 Last Admin: 01/27/18 09:05 Dose: 1,000 iu Docusate Sodium (Colace) 200 mg PO BID [facility] Stop: 03/24/18 16:59 Last Admin: 01/27/18 09:06 Dose: Not Given Escitalopram Oxalate (Lexapro) 10 mg PO DAILY [facility] PRN Reason: Protocol Stop: 03/27/18 14:59 Last Admin: 01/27/18 09:06 Dose: 10 mg Famotidine (Pepcid) 20 mg PO DAILY [facility] Stop: 03/25/18 08:59 Last Admin: 01/27/18 09:06 Dose: 20 mg Haloperidol (Haldol) 1 mg PO BID PRN; Protocol PRN Reason: Agitation Stop: 03/25/18 08:59 Magnesium Hydroxide (Milk Of Magnesia) 30 ml PO DAILY [facility] Stop: 03/25/18 08:59 Last Admin: 01/27/18 09:06 Dose: Not Given Metoprolol Tartrate (Lopressor) 50 mg PO BID [facility] Stop: 03/24/18 15:59 Last Admin: 01/27/18 09:07 Dose: 50 mg Oxybutynin Chloride (Ditropan) 5 mg PO BID [facility] Stop: 03/24/18 16:59 Last Admin: 01/27/18 09:06 Dose: 5 mg Simvastatin (Zocor) 40 mg PO HS [facility] PRN Reason: Protocol Stop: 03/24/18 20:59 Last Admin: 01/26/18 21:12 Dose: 40 mg Trazodone HCl (Desyrel) 50 mg PO HS [facility] PRN Reason: Protocol Stop: 03/24/18 20:59 Last Admin: 01/26/18 21:12 Dose: 50 mg General: alert HEENT: NC/AT, PERRLA Neck: Supple Lungs: CTAB Cardiovascular: RRR, Normal S1, Normal S2, without murmur Abdomen: soft, non-tender, non-distended, positive bowel sound Neurological: alert Internal Medicine Assmt/Plan - Assessment Assessment: agitation psychosis htn muscle spasms constipation gerd htn hypercholesteremia - Plan Plan: prn laxatives fall precautions continue current orders
--- NOTE | 2018-01-27 17:20 | Progress Notes ---
DATE: 01/27/2018 SUBJECTIVE: Staff was spoken to. The patient is interviewed. Mood is noted to be irritable. Affect is constricted. The patient is more focused on her pain medications. The patient is still feeling depressed. Coping skills are noted to be poor. The patient is currently on Lexapro. PLAN: To continue the patient with the supportive therapy. I encouraged the patient to verbalize the concerns rather than to act out. [facility]# [id number]
[2018-01-28] MEDS: Magnesium Hydroxide (MOM) 30 mL UDC PO SCH (08:47)
[2018-01-28] MEDS: Multivitamin w/ Minerals Tab PO SCH (08:49)
[2018-01-28] MEDS: Hydrocodone/APAP 10 mg/325 mg Tab PO PRN ×2 (09:28→18:28)
--- NOTE | 2018-01-28 13:16 | Internal Medicine Prog Note ---
Internal Medicine Subjective - Subjective Service Date: 01/28/18 Patient is:: awake, verbal Per staff patient has:: tolerating meds Internal Medicine Objective - Results Result Diagrams: 01/23/18 11:15 01/23/18 11:15 Recent Labs: Laboratory Last Values WBC 10.0 Th/cmm (4.8-10.8) 01/23/18 11:15 RBC 5.03 Mil/cmm (3.80-5.20) 01/23/18 11:15 Hgb 15.3 gm/dL (12-16) 01/23/18 11:15 Hct 45.6 % (41.0-60) 01/23/18 11:15 MCV 90.7 fl (81-100) 01/23/18 11:15 MCH 30.3 pg (27.0-31.0) 01/23/18 11:15 MCHC Differential 33.5 pg (28.0-36.0) 01/23/18 11:15 RDW 13.3 % (11.5-20.0) 01/23/18 11:15 Plt Count 357 Th/cmm (150-400) 01/23/18 11:15 MPV 7.4 fl 01/23/18 11:15 Neutrophils % 62.3 % (40.0-80.0) 01/23/18 11:15 Lymphocytes % 30.7 % (20.0-50.0) 01/23/18 11:15 Monocytes % 5.3 % (2.0-10.0) 01/23/18 11:15 Eosinophils % 1.5 % (0.0-5.0) 01/23/18 11:15 Basophils % 0.2 % (0.0-2.0) 01/23/18 11:15 Sodium 138 mEq/L (136-145) 01/23/18 11:15 Potassium 4.1 mEq/L (3.5-5.1) 01/23/18 11:15 Chloride 107 mEq/L (98-107) 01/23/18 11:15 Carbon Dioxide 24.0 mEq/L (21.0-31.0) 01/23/18 11:15 Anion Gap 11.1 (7.0-16.0) 01/23/18 11:15 BUN 12 mg/dL (7-25) 01/23/18 11:15 Creatinine 0.7 mg/dL (0.6-1.2) 01/23/18 11:15 Est GFR ( Amer) > 60.0 ml/min (>90) 01/23/18 11:15 Est GFR (Non-Af Amer) > 60.0 ml/min 01/23/18 11:15 BUN/Creatinine Ratio 17.1 01/23/18 11:15 Glucose 91 mg/dL (70-105) 01/23/18 11:15 Hemoglobin A1c % 5.8 % (4.0-6.0) 01/23/18 11:15 Calcium 9.2 mg/dL (8.6-10.3) 01/23/18 11:15 Total Bilirubin 0.5 mg/dL (0.3-1.0) 01/23/18 11:15 AST 14 U/L (13-39) 01/23/18 11:15 ALT 12 U/L (7-52) 01/23/18 11:15 Alkaline Phosphatase 108 U/L (34-104) H 01/23/18 11:15 Total Protein 6.7 gm/dL (6.0-8.3) 01/23/18 11:15 Albumin 4.2 gm/dL (3.7-5.3) 01/23/18 11:15 Globulin 2.5 gm/dL 01/23/18 11:15 Albumin/Globulin Ratio 1.7 (1.0-1.8) 01/23/18 11:15 Triglycerides 136 mg/dL (<150) 01/23/18 11:15 Cholesterol 142 mg/dL (<200) 01/23/18 11:15 LDL Cholesterol Direct 82 mg/dL (75-193) 01/23/18 11:15 HDL Cholesterol 49 mg/dL (23-92) 01/23/18 11:15 TSH 1.10 uIU/ml (0.34-5.60) 01/23/18 11:15 Urine Source CLEAN C 01/23/18 11:40 Urine Color YELLOW 01/23/18 11:40 Urine Clarity CLEAR (CLEAR) 01/23/18 11:40 Urine pH 6.5 (4.6 - 8.0) 01/23/18 11:40 Ur Specific [place] <= 1.005 (1.005-1.030) 01/23/18 11:40 Urine Protein NEGATIVE mg/dL (NEGATIVE) 01/23/18 11:40 Urine Glucose (UA) NEGATIVE mg/dL (NEGATIVE) 01/23/18 11:40 Urine Ketones NEGATIVE mg/dL (NEGATIVE) 01/23/18 11:40 Urine Blood SMALL (NEGATIVE) H 01/23/18 11:40 Urine Nitrate NEGATIVE (NEGATIVE) 01/23/18 11:40 Urine Bilirubin NEGATIVE (NEGATIVE) 01/23/18 11:40 Urine Urobilinogen 0.2 E.U./dL (0.2 - 1.0) 01/23/18 11:40 Ur Leukocyte Esterase NEGATIVE (NEGATIVE) 01/23/18 11:40 Urine RBC 0-2 /hpf (0-5) 01/23/18 11:40 Urine WBC 0-2 /hpf (0-5) 01/23/18 11:40 Ur Epithelial Cells OCCASIONAL /lpf (FEW) 01/23/18 11:40 Urine Bacteria NONE SEEN /hpf (NONE SEEN) 01/23/18 11:40 Salicylates < 25.0 mg/L (30.0-100.0) L 01/23/18 11:15 Urine Opiates Screen POSITIVE (NEGATIVE) H 01/23/18 11:40 Urine Methadone Screen NEGATIVE (NEGATIVE) 01/23/18 11:40 Acetaminophen < 10.0 ug/mL (10.0-30.0) L 01/23/18 11:15 Ur Barbiturates Screen NEGATIVE (NEGATIVE) 01/23/18 11:40 Ur Tricyclics Screen NEGATIVE (NEGATIVE) 01/23/18 11:40 Ur Phencyclidine Scrn NEGATIVE (NEGATIVE) 01/23/18 11:40 Amphetamines Screen NEGATIVE (NEGATIVE) 01/23/18 11:40 U Methamphetamines Scrn NEGATIVE (NEGATIVE) 01/23/18 11:40 U Benzodiazepines Scrn NEGATIVE (NEGATIVE) 01/23/18 11:40 U Cocaine Metab Screen NEGATIVE (NEGATIVE) 01/23/18 11:40 U Cannabinoids Screen NEGATIVE (NEGATIVE) 01/23/18 11:40 Ethyl Alcohol < 10 mg/dL (0-10) 01/23/18 11:15 RPR NONREACTIVE (NONREACTIVE) 01/23/18 11:15 - Physical Exam Vitals and I&O: Vital Signs Temp 98.5 F 01/28/18 05:22 Pulse 79 01/28/18 08:51 Resp 18 01/28/18 08:00 BP 130/74 01/28/18 08:51 Pulse Ox 93 01/28/18 05:22 Intake & Output 01/27/18 01/28/18 01/28/18 18:59 06:59 18:59 Intake Total 640 480 Balance 640 480 Intake: Oral 640 480 Other: # Voids 3 2 Active Medications: Current Medications Acetaminophen (Tylenol) 650 mg PO Q6H PRN PRN Reason: Pain (Mild) Stop: 03/24/18 14:34 Last Admin: 01/27/18 21:33 Dose: 650 mg Acetaminophen/Hydrocodone Bitart ([place] 10 Mg/325 Mg) 1 tab PO Q6H PRN PRN Reason: Pain (Severe) Stop: 03/24/18 14:34 Last Admin: 01/28/18 09:28 Dose: 1 tab Aspirin (Ecotrin) 81 mg PO DAILY [facility] Stop: 03/25/18 08:59 Last Admin: 01/28/18 08:47 Dose: 81 mg Baclofen (Lioresal) 10 mg PO TID [facility] Stop: 03/24/18 20:59 Last Admin: 01/28/18 08:47 Dose: 10 mg Cholecalciferol (Vitamin D3) 1,000 iu PO DAILY [facility] Stop: 03/25/18 08:59 Last Admin: 01/28/18 08:51 Dose: 1,000 iu Docusate Sodium (Colace) 200 mg PO BID [facility] Stop: 03/24/18 16:59 Last Admin: 01/28/18 08:48 Dose: 200 mg Escitalopram Oxalate (Lexapro) 10 mg PO DAILY [facility] PRN Reason: Protocol Stop: 03/27/18 14:59 Last Admin: 01/28/18 08:48 Dose: 10 mg Famotidine (Pepcid) 20 mg PO DAILY [facility] Stop: 03/25/18 08:59 Last Admin: 01/28/18 08:52 Dose: 20 mg Haloperidol (Haldol) 1 mg PO BID PRN; Protocol PRN Reason: Agitation Stop: 03/25/18 08:59 Magnesium Hydroxide (Milk Of Magnesia) 30 ml PO DAILY [facility] Stop: 03/25/18 08:59 Last Admin: 01/28/18 08:47 Dose: 30 ml Metoprolol Tartrate (Lopressor) 50 mg PO BID [facility] Stop: 03/24/18 15:59 Last Admin: 01/28/18 08:51 Dose: 50 mg Oxybutynin Chloride (Ditropan) 5 mg PO BID [facility] Stop: 03/24/18 16:59 Last Admin: 01/28/18 08:47 Dose: 5 mg Simvastatin (Zocor) 40 mg PO HS [facility] PRN Reason: Protocol Stop: 03/24/18 20:59 Last Admin: 01/27/18 21:33 Dose: 40 mg Trazodone HCl (Desyrel) 50 mg PO HS [facility] PRN Reason: Protocol Stop: 03/24/18 20:59 Last Admin: 01/27/18 21:33 Dose: 50 mg General: alert HEENT: NC/AT, PERRLA Neck: Supple Lungs: CTAB Cardiovascular: RRR, Normal S1, Normal S2, without murmur Abdomen: soft, non-tender, non-distended, positive bowel sound Neurological: alert Internal Medicine Assmt/Plan - Assessment Assessment: agitation psychosis htn muscle spasms constipation gerd htn hypercholesteremia - Plan Plan: prn laxatives fall precautions continue current orders
--- NOTE | 2018-01-29 02:11 | Progress Notes ---
DATE: 01/28/2018 PSYCHIATRIC PROGRESS NOTE SUBJECTIVE: Staff was spoken to. The patient is interviewed. Mood is noted to be irritable. Affect is constricted. Coping skills are noted to be still poor. Insight and judgment are noted to be still impaired. No side effects to the medications are noted. The patient has been wandering in the unit. ASSESSMENT: The patient is still depressed. PLAN: To continue the patient with the Lexapro. I encouraged the patient to verbalize the concerns rather than to act out. JOB# [id number]
[2018-01-29] MEDS: Magnesium Hydroxide (MOM) 30 mL UDC PO SCH (10:22)
[2018-01-29] MEDS: Hydrocodone/APAP 10 mg/325 mg Tab PO PRN (10:23)
[2018-01-29] MEDS: Multivitamin w/ Minerals Tab PO SCH (10:23)
--- NOTE | 2018-01-29 14:12 | Internal Medicine Prog Note ---
Internal Medicine Subjective - Subjective Patient seen and examined:: with staff, chart reviewed (pt about to be dc) Patient is:: awake, verbal Per staff patient has:: tolerating meds Internal Medicine Objective - Results Result Diagrams: 01/23/18 11:15 01/23/18 11:15 Recent Labs: Laboratory Last Values WBC 10.0 Th/cmm (4.8-10.8) 01/23/18 11:15 RBC 5.03 Mil/cmm (3.80-5.20) 01/23/18 11:15 Hgb 15.3 gm/dL (12-16) 01/23/18 11:15 Hct 45.6 % (41.0-60) 01/23/18 11:15 MCV 90.7 fl (81-100) 01/23/18 11:15 MCH 30.3 pg (27.0-31.0) 01/23/18 11:15 MCHC Differential 33.5 pg (28.0-36.0) 01/23/18 11:15 RDW 13.3 % (11.5-20.0) 01/23/18 11:15 Plt Count 357 Th/cmm (150-400) 01/23/18 11:15 MPV 7.4 fl 01/23/18 11:15 Neutrophils % 62.3 % (40.0-80.0) 01/23/18 11:15 Lymphocytes % 30.7 % (20.0-50.0) 01/23/18 11:15 Monocytes % 5.3 % (2.0-10.0) 01/23/18 11:15 Eosinophils % 1.5 % (0.0-5.0) 01/23/18 11:15 Basophils % 0.2 % (0.0-2.0) 01/23/18 11:15 Sodium 138 mEq/L (136-145) 01/23/18 11:15 Potassium 4.1 mEq/L (3.5-5.1) 01/23/18 11:15 Chloride 107 mEq/L (98-107) 01/23/18 11:15 Carbon Dioxide 24.0 mEq/L (21.0-31.0) 01/23/18 11:15 Anion Gap 11.1 (7.0-16.0) 01/23/18 11:15 BUN 12 mg/dL (7-25) 01/23/18 11:15 Creatinine 0.7 mg/dL (0.6-1.2) 01/23/18 11:15 Est GFR ( Amer) > 60.0 ml/min (>90) 01/23/18 11:15 Est GFR (Non-Af Amer) > 60.0 ml/min 01/23/18 11:15 BUN/Creatinine Ratio 17.1 01/23/18 11:15 Glucose 91 mg/dL (70-105) 01/23/18 11:15 Hemoglobin A1c % 5.8 % (4.0-6.0) 01/23/18 11:15 Calcium 9.2 mg/dL (8.6-10.3) 01/23/18 11:15 Total Bilirubin 0.5 mg/dL (0.3-1.0) 01/23/18 11:15 AST 14 U/L (13-39) 01/23/18 11:15 ALT 12 U/L (7-52) 01/23/18 11:15 Alkaline Phosphatase 108 U/L (34-104) H 01/23/18 11:15 Total Protein 6.7 gm/dL (6.0-8.3) 01/23/18 11:15 Albumin 4.2 gm/dL (3.7-5.3) 01/23/18 11:15 Globulin 2.5 gm/dL 01/23/18 11:15 Albumin/Globulin Ratio 1.7 (1.0-1.8) 01/23/18 11:15 Triglycerides 136 mg/dL (<150) 01/23/18 11:15 Cholesterol 142 mg/dL (<200) 01/23/18 11:15 LDL Cholesterol Direct 82 mg/dL (75-193) 01/23/18 11:15 HDL Cholesterol 49 mg/dL (23-92) 01/23/18 11:15 TSH 1.10 uIU/ml (0.34-5.60) 01/23/18 11:15 Urine Source CLEAN C 01/23/18 11:40 Urine Color YELLOW 01/23/18 11:40 Urine Clarity CLEAR (CLEAR) 01/23/18 11:40 Urine pH 6.5 (4.6 - 8.0) 01/23/18 11:40 Ur Specific [place] <= 1.005 (1.005-1.030) 01/23/18 11:40 Urine Protein NEGATIVE mg/dL (NEGATIVE) 01/23/18 11:40 Urine Glucose (UA) NEGATIVE mg/dL (NEGATIVE) 01/23/18 11:40 Urine Ketones NEGATIVE mg/dL (NEGATIVE) 01/23/18 11:40 Urine Blood SMALL (NEGATIVE) H 01/23/18 11:40 Urine Nitrate NEGATIVE (NEGATIVE) 01/23/18 11:40 Urine Bilirubin NEGATIVE (NEGATIVE) 01/23/18 11:40 Urine Urobilinogen 0.2 E.U./dL (0.2 - 1.0) 01/23/18 11:40 Ur Leukocyte Esterase NEGATIVE (NEGATIVE) 01/23/18 11:40 Urine RBC 0-2 /hpf (0-5) 01/23/18 11:40 Urine WBC 0-2 /hpf (0-5) 01/23/18 11:40 Ur Epithelial Cells OCCASIONAL /lpf (FEW) 01/23/18 11:40 Urine Bacteria NONE SEEN /hpf (NONE SEEN) 01/23/18 11:40 Salicylates < 25.0 mg/L (30.0-100.0) L 01/23/18 11:15 Urine Opiates Screen POSITIVE (NEGATIVE) H 01/23/18 11:40 Urine Methadone Screen NEGATIVE (NEGATIVE) 01/23/18 11:40 Acetaminophen < 10.0 ug/mL (10.0-30.0) L 01/23/18 11:15 Ur Barbiturates Screen NEGATIVE (NEGATIVE) 01/23/18 11:40 Ur Tricyclics Screen NEGATIVE (NEGATIVE) 01/23/18 11:40 Ur Phencyclidine Scrn NEGATIVE (NEGATIVE) 01/23/18 11:40 Amphetamines Screen NEGATIVE (NEGATIVE) 01/23/18 11:40 U Methamphetamines Scrn NEGATIVE (NEGATIVE) 01/23/18 11:40 U Benzodiazepines Scrn NEGATIVE (NEGATIVE) 01/23/18 11:40 U Cocaine Metab Screen NEGATIVE (NEGATIVE) 01/23/18 11:40 U Cannabinoids Screen NEGATIVE (NEGATIVE) 01/23/18 11:40 Ethyl Alcohol < 10 mg/dL (0-10) 01/23/18 11:15 RPR NONREACTIVE (NONREACTIVE) 01/23/18 11:15 - Physical Exam Vitals and I&O: Vital Signs Temp 97.4 F 01/28/18 20:00 Pulse 71 01/29/18 10:23 Resp 20 01/28/18 20:00 BP 130/78 01/29/18 10:23 Pulse Ox 98 01/28/18 20:00 Intake & Output 01/28/18 01/29/18 01/29/18 18:59 06:59 18:59 Intake Total 1800 Balance 1800 Intake: Oral 1800 Other: # Voids 2 General: alert HEENT: NC/AT, PERRLA Neck: Supple Lungs: CTAB Cardiovascular: RRR, Normal S1, Normal S2, without murmur Abdomen: soft, non-tender, non-distended, positive bowel sound Neurological: alert Internal Medicine Assmt/Plan - Assessment Assessment: - Assessment Assessment: agitation psychosis htn muscle spasms constipation gerd htn hypercholesteremia - Plan Plan: prn laxatives fall precautions continue current orders - Plan Plan: cpm for dc to placement Nutritional Asmnt/Malnutr-PDOC - Dietary Evaluation Malnutrition Findings (Please click <Entered> for more info): Nutritional Asmnt/Malnutrition Start: 01/28/18 14: 21 Text: Status: Complete Freq: Document 01/28/18 14:22 CAPRI (Rec: 01/28/18 14:31 CAPRI [email or web address]) Nutritional Asmnt/Malnutrition Patient General Information Nutritional Screening High Risk Diagnosis psychosis Pertinent Medical Hx/Surgical Hx HTN, muscle spasms, constipation, GERD, hypercholesterolemia Subjective Information Pt seen sitting on wheelchair in her room, alert. Pt reported appetitie and meals okay. Pt likes iced tea with a lot sugar. Per EMR, PO intake 75-100%. Current Diet Order/ Nutrition Support ERNESTINE Pertinent Medications vit D3, colace, pepcid Pertinent Labs 01/23 nutrition related labs WNL Nutritional Hx/Data Height 1.63 m Height (Calculated Centimeters) 162.6 Current Weight (lbs) 72.121 kg Weight (Calculated Kilograms) 72.1 Weight (Calculated Grams) 14303.2 [place] Body Weight 120 Body Mass Index (BMI) 27.3 Weight Status Overweight GI Symptoms GI Symptoms None Last BM no BM on 01/26 Difficult in: None Skin Integrity/Comment: intact Current %PO Good (75-100%) Estimated Nutritional Goals BEE in Kcals: Adj wt of IBW Calories/Kcals/Kg 25-30 Kcals Calculated 2503-7109 Protein: Adj wt of IBW Protein g/k Protein Calculated 63 Fluid: ml 1575-1890ml (1ml/ckal) Nutritional Problem No current Nutrition Prob Problem N/A Malnutrition Alert Protein-Calorie Malnutrition N/A Is there a minimum of two criteria No selected? Query Text:Check all the applicable criteria. A minimum of two criteria are recommended for diagnosis of either severe or non-severe malnutrition. Intervention/Recommendation Comments 1. Continue with current diet as ordered. Food preference updated with financial recording clerk. 2. Monitor PO intake, wt, labs and skin integrity 3. F/U as low risk in 7d ays, 02/04 Expected Outcomes/Goals Expected Outcomes/Goals 1. PO intake to meet at least 75% of nutritional needs. 2. Wt stability, skin to remain intact, labs to approach WNL.
--- NOTE | 2018-01-29 21:36 | Progress Notes ---
DATE: 01/29/2018 SUBJECTIVE: Staff was spoken to. The patient is interviewed. Mood is noted to be irritable. Affect is constricted. The patient's insight and judgment are noted to be still impaired. Impulse control is noted to be poor. Coping skills are noted to be very poor. The patient has been having difficult time to cope with the stress. The patient has been asking for the pain medications all the time. No side effects to the medications are noted. ASSESSMENT: The patient is still depressed. PLAN: To continue the patient with Lexapro and follow the patient up. JOB# [id number]
== END 2018-01-29 12:15 | DRG 885 ==
LOC: ER 10:42 → GERO2 14:00
PROVIDERS: ADMIT Psychiatry & Neurology Psychiatry; ATTEND Psychiatry & Neurology Psychiatry
DX: F31.5 Bipolar disorder, current episode depressed, severe, with psychotic features (principal); F29 Unspecified psychosis not due to a substance or known physiological condition; E78.00 Pure hypercholesterolemia, unspecified; M62.838 Other muscle spasm; I10 Essential (primary) hypertension; K59.00 Constipation, unspecified; K21.9 Gastro-esophageal reflux disease without esophagitis; E78.5 Hyperlipidemia, unspecified; Z82.49 Family history of ischemic heart disease and other diseases of the circulatory system; Z79.82 Long term (current) use of aspirin
CPT/HCPCS: 36415-UA; 80053-TC; 80061-TC; 80307; 80320-TC; 80329-TC; 81001-TC; 83036-90; 84443-TC; 85025-TC; 86592-TC; 90899; 93005; Z7610